=== PATIENT | male | born 1965 | race Caucasian/White ===

== ENCOUNTER 2020-12-06 11:48 | Observation (INO) | payer OTHER ==
[~2020-12-06] VITALS: Ht 175.3 cm; Wt 71.2 kg
[~2020-12-06 11:48] MED LIST: ADULT LOW DOSE81 MG PO; AMLODIPINE BESYL5 MG; ASPIRIN EC81 M1; ASPIRIN81 M2 PO; BENTYL20 MG PO; DICYCLOMINE HCL20 MG PO; FLEXERIL OR; GEMFIBROZIL 60600 MG; GLUCOPHAGE1000 MG PO; GLUCOPHAGE500 MG PO; HYDROCHLOROTHIA25 M2 PO; JANUMET 50-1,01 EACH; LISINOPRIL5 MG PO; LOVASTAT20 PO; LOVASTAT40 PO; NORCO 5-325 TA1 EACH PO; PHENERGAN 25 MG25 M1 PO; PRILOSEC40 MG PO; PRINIVIL20 MG PO; PROAIR HFA8.5 GM INH; VICODIN 5-5001 EACH PO; VITAMIN D1000 UNI1; VITAMIN D1000 UNI1 PO; VITAMIN D10000 UNIT PO; WELLBUTRIN XL150 M1; WELLBUTRIN XL300 M1 PO
[2020-12-06 12:08] VITALS: BP 133/93
[2020-12-06 13:57] LABS: URINE BILIRUBIN NEGATIVE (Negative); URINE BLOOD NEGATIVE (Negative); URINE CLARITY CLEAR; URINE COLOR YELLOW; URINE GLUCOSE-RANDOM 3+ (Negative); URINE KETONES NEGATIVE (Negative); URINE LEUKOCYTES-REFLEX NEGATIVE (Negative); URINE NITRITE-REFLEX NEGATIVE (Negative); URINE PROTEIN NEGATIVE (Negative); URINE SPECIFIC GRAVITY 1.015 (1.005-1.030); URINE UROBILINOGEN 0.2 E.U./dl (0.2-1.0)
[2020-12-06 14:43] LABS: CALCIUM 9.3 mg/dL (8.5-10.1); CREATININE 1.2 mg/dL (0.6-1.3); POTASSIUM 4.4 mmol/L (3.5-5.1)
[2020-12-06 14:48] LABS: ALBUMIN 4.7 g/dL (3.4-5.0); TOTAL BILIRUBIN 0.8 mg/dL (<0.1-1.0); TOTAL PROTEIN 8.3 g/dL (6.4-8.2)
[2020-12-06 15:21] LABS: ABSOLUTE BASOPHILS 0.1 thou/uL (0.0-0.2); ABSOLUTE EOSINOPHILS 0.1 thou/uL (0.0-0.7); ABSOLUTE MONOCYTES 0.7 thou/uL (0.0-1.2); ABSOLUTE NEUTROPHILS 6.8 thou/uL (1.6-8.1); BASOPHILS 1.2 %; EOSINOPHILS 0.8 %; HEMATOCRIT 45.3 % (42.0-52.0); HEMOGLOBIN 15.5 gm/dL (14.0-18.0); LYMPHOCYTES 20.3 %; MCHC 34.2 g/dL (28.0-37.0); MCV 90.7 fL (80.0-100.0); MONOCYTES 7.5 %; MPV 8.1 fl. (7.2-11.1); NUCLEATED RBCS 0 /100WBC; PLATELET COUNT* 295 thou/uL (150-400); POLYS 70.2 %; RBC 4.99 mil/uL (4.50-6.00); RDW-CV 13.4 % (10.5-14.5); WBC 9.8 thou/uL (4.0-11.0)
--- NOTE | 2020-12-06 17:46 | EKG ---
[place] [address] ELECTROCARDIOGRAM REPORT Name: EMIL IBARRA Room: [address]#: [id number] Admission: 12/06/20 Attend Phys: Maria Fernanda Villalta, Discharge: Date of : 61 Date of Service: 12/06/20 1352 Report #: [id number] THIS REPORT FOR: //name// [facility] ED Test Date: 2020-12-06 Test Time: 13:52:50 Pat Name: EMIL IBARRA Department: Room: [facility] Gender: M Development Consultant: SALMA : 1965 Requested By: Melania Talley Order Number: [id number] MD: Thad Manuel Measurements Intervals [place] Rate: 109 P: 59 MT: 141 QRS: -24 QRSD: 96 T: 135 QT: 341 QTc: 460 Interpretive Statements Sinus tachycardia LAE, consider biatrial enlargement LVH with secondary repolarization abnormality Probable anterior infarct, old Minimal ST elevation, consider early repolarization Baseline wander in lead(s) I,III,aVR,aVL,V2,V3,V5 Compared to ECG 11/07/2016 16:57:43 Left ventricular hypertrophy now present Early repolarization now present Myocardial infarct finding now present Sinus rhythm no longer present Electronically Signed On 12-06-2020 17:45:58 CDT by Thad Manuel [email or web address] <ELECTRONICALLY SIGNED> By: Thad Manuel MD, [facility] 12/06/20 1745 1352 1352 Thad Manuel MD, [facility] /EPI
[2020-12-06 21:36] VITALS: BP 165/105
[2020-12-06 23:00] VITALS: BP 148/84
[2020-12-07 04:34] VITALS: BP 111/59
[2020-12-07 05:05] LABS: HEMATOCRIT 39.8 % (42.0-52.0); HEMOGLOBIN 13.9 gm/dL (14.0-18.0); MCH 31.4 pg (26.0-34.0); MCV 89.7 fL (80.0-100.0); MPV 7.9 fl. (7.2-11.1); RBC 4.44 mil/uL (4.50-6.00); RDW-CV 13.3 % (10.5-14.5); WBC 9.4 thou/uL (4.0-11.0)
[2020-12-07 05:14] LABS: ALBUMIN 3.3 g/dL (3.4-5.0); ALKALINE PHOSPHATASE 83 U/L (46-116); ANION GAP 9 mmol/L (7-16); BUN 16 mg/dL (7-18); CALCIUM 7.9 mg/dL (8.5-10.1); CHLORIDE 108 mmol/L (98-107); CHOLESTEROL 202 mg/dL (<200); CO2 25 mmol/L (21-32); GLUCOSE 139 mg/dL (70-99); HDL CHOLESTEROL 32 mg/dL (>40); LDL CHOLESTEROL 136 mg/dL (<100); MAGNESIUM 1.7 mg/dL (1.8-2.4); POTASSIUM 3.9 mmol/L (3.5-5.1); SGOT 11 U/L (15-37); SGPT 18 U/L (30-65); TC:HDL 6.3 Ratio (Not establshd); TOTAL BILIRUBIN 0.7 mg/dL (<0.1-1.0); TOTAL PROTEIN 6.1 g/dL (6.4-8.2); TRIGLYCERIDE 174 mg/dL (<150); VLDL 35 mg/dL (<40)
[2020-12-07 05:17] LABS: SODIUM 142 mmol/L (136-145)
[2020-12-07 05:53] LABS: SERUM ASSESSMENT Clear
[2020-12-07 08:00] VITALS: BP 112/79
[2020-12-07] MEDS ORDERED: NEXIUM40 MG PO (10:43)
[2020-12-07] MEDS ORDERED: GLUCOPHAGE XR750 MG PO (10:43)
[2020-12-07 11:09] VITALS: BP 112/79
[2020-12-07 11:54] VITALS: BP 97/64
--- NOTE | 2020-12-07 12:53 | NUR ---
patient d/c 1130. verbalized understanding of all d/c papers and new prescriptions. patient stated that if he was not discharged he would leave [facility]. he states he wanted to get out to smoke. All belongings are with patient and . clinical research monitor off and IV taken out. Taken out by wheelchair.
[2020-12-08 22:06] LABS: GLYCOHEMOGLOBIN (HGB A1C) 12.1 % (4.8-5.6)
== END 2020-12-07 11:30 | disposition home or self-care (01) ==
LOC: M.ERS 11:48 → M.TBA-ER 15:36 → M.2W 22:00
PROVIDERS: Physician Assistant; ADMIT Internal Medicine; ATTEND Internal Medicine
DX: R42 Dizziness and giddiness (principal); E11.00 Type 2 diabetes mellitus with hyperosmolarity without nonketotic hyperglycemic-hyperosmolar coma (NKHHC); E87.1 Hypo-osmolality and hyponatremia; Z20.822 Contact with and (suspected) exposure to COVID-19; R01.1 Cardiac murmur, unspecified; I10 Essential (primary) hypertension; E11.9 Type 2 diabetes mellitus without complications; E78.00 Pure hypercholesterolemia, unspecified; F17.200 Nicotine dependence, unspecified, uncomplicated; Z86.73 Personal history of transient ischemic attack (TIA), and cerebral infarction without residual deficits; Z91.19 Patient's noncompliance with other medical treatment and regimen; Z86.79 Personal history of other diseases of the circulatory system; Z79.899 Other long term (current) drug therapy; Z79.84 Long term (current) use of oral hypoglycemic drugs